=== PATIENT | female | born 1955 | race Caucasian/White ===

== ENCOUNTER 2016-11-15 07:26 | Observation (INO) | payer MEDICARE, OTHER ==
--- NOTE | ~2016-11-15 | OR ---
Unit #: [id number] #: [id number] Patient: DEBBIE LEUNG [id number] [address] [address] [id number] I MR#: [id number] NAME: DEBBIE LEUNG ROOM: [facility] Date of Procedure: 11/15/2016 Admission Date: 11/15/2016 Surgeon: Pascual Dove M.D. : 1955 Attending Physician: Pascual Dove M.D. Referring Physician: Pascual Dove M.D. Primary Care Physician: Dirk Dawson M.D. OPERATIVE REPORT JOB NOTE: CC: PAIN CENTER. PREOPERATIVE DIAGNOSES Intractable neck and back pain secondary to failed neck surgery and failed back surgery post spinal fusion. POSTOPERATIVE DIAGNOSES Intractable neck and back pain secondary to failed neck surgery and failed back surgery post spinal fusion. PROCEDURE PERFORMED Place long-term epidural catheter with intravenous sedation under fluoroscopic guidance for needle localization. DESCRIPTION OF PROCEDURE The patient was placed in a seated position. Standard monitors were applied. Sterile prep and drape of the lumbar area was performed. 2 mg of Versed were given in divided doses for anxiolysis and sedation, which were adequate. Vital signs remained stable. Sterile prep and drape then of the lumbar area was performed. The skin at the L3-L4 level was localized with 1% lidocaine. An 18-gauge Hustead needle was then advanced via loss of resistance technique with fluoroscopic guidance in toward the epidural space. The patient did not complain of pain or paresthesia. Epidural catheter was easily threaded approximately 7 cm into the epidural space. The patient had a mild paresthesia with catheter into the epidural space. This quickly abated. After confirming proper positioning with fluoroscopy and radiographic contrast, the catheter system was securely fastened using half-inch Steri-Strips and then sterile dressings. The patient tolerated the procedure well and was discharged to recovery room where an infusion will be set up to assess the patient for efficacy of actual narcotics. Dictated by... Jessie De La Torre/franny TD: 11/15/2016 12:50 JOB #: [id number] CC: Pain Center Unit #: [id number] #: [id number] Patient: DEBBIE LEUNG OPERATIVE REPORT X Pascual Dove MD X PROCEDURE OPERATIVE NOTE
--- NOTE | ~2016-11-15 | DS ---
Unit #: [id number] #: [id number] Patient: DEBBIE LENUG [id number] [address] [address] [id number] I MR#: [id number] NAME: DEBBIE LEUNG ROOM: [facility] Age: 60 Sex: F Admission Date: 11/15/2016 : 1955 Discharge Date: 11/16/2016 Attending Physician: Pascual Dove M.D. Referring Physician: Pascual Dove M.D. Primary Care Physician: Dirk Dawson M.D. DISCHARGE SUMMARY HISTORY The patient was placed in observation in the hospital following placement of an epidural catheter for a trial with a view towards possible intrathecal pain pump placement. The patient has intractable pain associated with failed back surgery syndrome, degenerative spine disease and a post cervical and lumbar fusion syndrome. After placing an epidural catheter in the operating suite, the patient was placed on the floor in continuous infusion. There were boluses of 1 mg initially and a 0.5 mg (1) further and rate was increased eventually to 0.4 mg per hour. At this level the patient had a 75% reduction in her symptom complex. She had no significant side effects. She did not require any breakthrough medications. She is very happy with the level of improvement that she achieved. The decision was made at that point that the patient had passed the trial. The catheter was discontinued and plan was to discharge the patient home. DISCHARGE DIAGNOSIS Intractable pain due to post cervical fusion syndrome, post lumbar fusion syndrome, radiculopathy, degenerative disc disease, neurogenic bladder. PLAN The plan is to schedule the patient as an outpatient for pump placement. Dictated by... Jessie De La Torre/ezequiel TD: 11/17/2016 07:46 JOB #: [id number] CC: Pain Center DISCHARGE SUMMARY X Pascual Dove MD X DISCHARGE SUMMARY
--- NOTE | ~2016-11-15 | EKG ---
PATIENT: DEBBIE LEUNG UNIT #: [id number] Ventricular Rate: 92 BPM Atrial Rate: 92 BPM P-R Interval: 172 ms QRS Duration: 84 ms Q-T Interval: 394 ms QTC Calculation(Bezet): 487 ms P [place]: 52 degrees Calculated R [place]: 7 degrees Calculated T [place]: 37 degrees Diagnosis Line: Normal sinus rhythm Diagnosis Line: Cannot rule out Inferior infarct , age Diagnosis Line: undetermined Diagnosis Line: Abnormal ECG Diagnosis Line: When compared with ECG of 20-FEB-2015 10:06, Diagnosis Line: Vent. rate has increased BY 31 BPM Diagnosis Line: QT has lengthened Diagnosis Line: Confirmed by MISAEL NICHOLSON MD ([id number]) on 11/16/2016 Diagnosis Line: 7:29:12 PM INTERPRETING MD: BHARAT WOO
[~2016-11-15 07:26] MED LIST: ACIDOPHILUS1 CA1 PO; ACIDOPHILUS1 TAB PO; ACIPHEX20 MG; ALLERGY SHOTS; ALLERGY SHOTS SUBQ; ALLERGY SYR1 DIS.SYR IM; ALPRAZOLAM; ALPRAZOLAM PO; AMBIEN10 MG PO; AMLODIPINE BESYL5 MG PO; B SHOT; BENTYL10 MG PO; BISOPROLOL/HCTZ1 TA3 PO; BUSPAR5 MG PO; CALCIUM + D 6001 TA1 PO; CALCIUM 500 + D1 TAB PO; CALTRATE 600+D PO; CARAFATE; CARAFATE PO; CARAFATE1 G PO; CARAFATE1 GM PO; CELEBREX PO; CELEXA PO; CHEWABLE ASPIRI81 MG PO; CIPRO PO; DICYCLOMINE HCL20 MG; DICYCLOMINE HCL20 MG PO; DURAGESIC25 MCG EXT; ESTRACE TOP; ESTRACE1 MG PO; ESTRADIOL1 MG PO; FISH OIL 1,2001 EACH PO; FLAGYL; FLAGYL PO; FLEXERIL10 MG PO; FLOMAX0.4 M1 PO; KEFLEX500 M2 PO; LASIX20 MG PO; LEVOCETIRIZINE D5 MG PO; LIPITOR; LIPITOR20 MG PO; LIPITOR40 MG PO; LODINE PO; LOMOTIL TABLET1 TAB; LORTAB 7.5-5001 TAB; LYRICA100 MG PO; MACRODANTIN50 MG PO; METOPROLOL SUCC25 MG PO; METRONIDAZOLE; MULTI VITAMIN1 EACH PO; NEXIUM PO; OXYCODON HCL-1 UDTAB PO; OXYCODONE HCL15 MG PO; PERCOCET10 PO; PERCOCET5/325 PO; PHENERGAN; PHENERGAN PO; PHENERGAN25 M1 PO; PRAVASTATIN SOD40 MG PO; PREDNISOLONE5 MG PO; PREDNISONE5 M1 PO; PREDNISONE5 MG PO; PRENATAL MULTIV1 TA1 PO; PRENATAL W/FOLI1 TA1 PO; PREVACID; PREVACID PO; PROTONIX; RECLAST 55 MG/100 M IV; RECLAST IV IV; REGLAN; REGLAN5 MG PO; SINGULAIR; SINGULAIR PO; VAGIFEM25 MCG PO; VITAMIN B 12; VITAMIN B12 INJ; VITAMIN D; VITAMIN D 4001 UDTAB PO; VITAMIN D400 UNI1 PO; XANAX0.5 M1 PO; XANAX1 MG PO; XYZAL5 MG PO; ZANAFLEX PO; ZOCOR PO; ZOFRAN PO; ZOLOFT100 MG PO; ZYRTEC PO; ZYRTEC10 M2 PO; [UNRECOGNIZED DRUG - OTHER]
[2016-11-15] MEDS ORDERED: BENTYL20 M1 PO (08:14)
[2016-11-15] MEDS ORDERED: XIFAXAN550 MG PO (08:15)
[2016-11-15 08:34] LABS: URINE SOURCE CATH
[2016-11-15 08:38] LABS: HEMATOCRIT 32.5 % (35.0-45.0); HEMOGLOBIN 10.6 gm/dL (12.0-16.0); MEAN CELL VOLUME 90.7 FL (83-96); MEAN CORPUSCULAR HEMOGLOBIN 29.5 PG (28-34); MEAN CORPUSCULAR HGB CONC 32.5 g/dL (30-36); MEAN PLATELET VOLUME 7.1 FL (6.5-11.5); RED BLOOD COUNT 3.58 X10e (3.90-5.30); WHITE BLOOD COUNT 7.9 X10e3 (4.0-10.5)
[2016-11-15 08:39] LABS: URINE APPEARANCE CLOUDY; URINE BILIRUBIN NEG (NEG); URINE BLOOD TRACE (NEG); URINE COLOR YELLOW; URINE GLUCOSE NEG (NEG); URINE KETONE TRACE (NEG); URINE LEUKOCYTE ESTERASE 3+ (NEG); URINE NITRATE POS (NEG); URINE PROTEIN TRACE (NEG); URINE SPECIFIC GRAVITY 1.019 (1.003-1.035); URINE UROBILINOGEN 0.2 MG/DL (NEG)
[2016-11-15 08:42] LABS: URINE SQUAMOUS EPITHELIAL CELL OCC /[HPF]; UWBCS1 AUWI INNUM (0-5)
[2016-11-15 08:57] LABS: CULTURE INDICATED? YES; URINE BACTERIA AUWI 3+ (NEGATIVE)
[2016-11-15 09:12] LABS: BLOOD UREA NITROGEN 8 mg/dL (9-23); CALCIUM SERUM 8.9 mg/dL (8.4-10.2); CARBON DIOXIDE 29 mmol/L (22-31); CHLORIDE 103 mmol/L (100-111); CREATININE SERUM 0.8 mg/dL (0.6-1.4); GLOM FILT RATE Estimated ABOVE60 mL/min (>60); GLUCOSE FASTING 103 mg/dL (70-110); SODIUM 141 mmol/L (135-145)
[2016-11-15 09:15] LABS: POTASSIUM 2.8 mmol/L (3.5-5.1)
== END 2016-11-16 18:20 | disposition home or self-care (01) ==
LOC: CSUR 07:26 → CPACUOF 09:27 → C4B 12:00
PROVIDERS: Pain Medicine Pain Medicine
DX: M96.1 Postlaminectomy syndrome, not elsewhere classified (principal); M54.16 Radiculopathy, lumbar region; M54.2 Cervicalgia; Z98.1 Arthrodesis status; K21.9 Gastro-esophageal reflux disease without esophagitis; Z87.440 Personal history of urinary (tract) infections; I10 Essential (primary) hypertension; M19.90 Unspecified osteoarthritis, unspecified site; Z88.1 Allergy status to other antibiotic agents; Z88.8 Allergy status to other drugs, medicaments and biological substances; Z90.710 Acquired absence of both cervix and uterus; Z96.653 Presence of artificial knee joint, bilateral
CPT/HCPCS: 76000; 80048; 81003; 85027; 87086; 87088; 87186; 93005; 96374; G0378; J2250; J2274; J2310; J2405

== ENCOUNTER → 2016-12-03 | Outpatient (CLI) | payer MEDICARE, OTHER ==
[~2016-12-03] MED LIST changes: +BENTYL20 M1 PO; +XIFAXAN550 MG PO
--- NOTE | ~2016-12-03 | BD1 ---
[facility] A Service of [facility] & [facility] RADIOLOGY TEXT RESULTS PATIENT: DEBBIE LEUNG LOCATION: SRA : 51 UNIT #: [id number] AGE: [address]: DIRK LA MD SEX: F ORDER DR: [id number] [address] [address] [id number] O MR#: [id number] Acc #: [id number] NAME: DEBBIE LEUNG : 1955 SEX: F STUDY DATE/TIME: 12/03/2016 11:19 [facility] ROOM: STUDY DESCRIPTION: Dexa Bone Dens 1+ Site Attending Physician: Dirk La M.D. Referring Physician: Dirk La M.D. Ordering Physician: Dirk La M.D. Primary Care Physician: Dirk La M.D. MEDICAL IMAGING REPORT This report is preliminary unless electronic signature is present. EXAM DEXA scan HISTORY A 60-year-old female postmenopausal screening for osteoporosis COMPARISON Bone densitometry 06/25/2013 and 04/22/2011 FINDINGS Bone density was assessed utilizing a [employer] bone densitometer. Bone density was measured at the distal right forearm. Hip and lumbar spine measurements could not be obtained as the patient has had previous hip replacements and lumbar spine instrumentation. A lateral vertebral assessment and scan was also obtained. Bone density within the distal radius utilizing the distal third of the radius measured 0.771 g/cm sq a T score -1.3. This represents a statistically significant change in bone density when compared to the 2013 study where the patient's distal radial measurements were 0.868 g/cm2. Based on the T score of -1.3, this corresponds to World Health Organization criteria for osteopenia and again represents a statistically significant change from the 2013 study. IMPRESSION 1. Bone density within the distal right forearm is greater than 1 standard deviation below the mean and is compatible World Health Organization criteria for osteopenia. When compared to the patient's study from June 2013, there has been a statistically significant decrease in bone density relative to the 2013 study. 2. Lateral vertebral assessment was also performed which demonstrated no definitive fractures. [facility] A Service of [facility] & [facility] RADIOLOGY TEXT RESULTS PATIENT: DEBBIE LEUNG LOCATION: [facility] : 51 UNIT #: [id number] AGE: [address]: DIRK LA MD SEX: F ORDER DR: Dictated by... Liam Grissom M.D. THIS IS AN ELECTRONICALLY VERIFIED REPORT Liam Grissom M.D. at 12/13/2016 7:35 PM RUSH/bri TD: 12/13/2016 18:18 JOB #: [id number] MEDICAL IMAGING REPORT Page 1 of 1
== END | disposition home or self-care (01) ==
LOC: SRAD 10:59
DX: M81.0 Age-related osteoporosis without current pathological fracture (principal)
CPT/HCPCS: 77080

== ENCOUNTER → 2016-12-27 | Day surgery (SDC) | payer MEDICARE, OTHER ==
--- NOTE | ~2016-12-27 | OR ---
Unit #: [id number] #: [id number] Patient: DEBBIE LEUNG [id number] [address] [place], [place] [address] [id number] O MR#: [id number] NAME: DEBBIE LEUNG ROOM: Date of Procedure: 12/27/2016 Admission Date: 12/27/2016 Surgeon: Pascual Dove M.D. : 1955 Attending Physician: Pascual Dove M.D. Primary Care Physician: Dirk Dawson M.D. OPERATIVE REPORT JOB NOTE: CC: PAIN CENTER PREOPERATIVE DIAGNOSES Intractable neck and back pain, failed back surgery syndrome. POSTOPERATIVE DIAGNOSES Intractable neck and back pain, failed back surgery syndrome. PROCEDURES PERFORMED Placement of intrathecal catheter and placement of programmable pain pump. ANESTHESIA General. PREOPERATIVE ANTIBIOTICS Ancef protocol. ESTIMATED BLOOD LOSS 20 mL. DESCRIPTION OF PROCEDURE The patient was placed under general anesthetic in a left lateral decubitus position. Pressure points were padded by the OR staff. The patient was then sterilely prepped and draped. Fluoroscopy was used to identify the L2-L3 level. The skin just lateral to midline here was localized with 0.5% Marcaine. Sharp and Bovie dissection were used to dissect down to the paraspinous fascia. A 17-gauge introducer needle was advanced with one pass into the intrathecal space. Clear CSF was seen to flow freely. Catheter was easily threaded with fluoroscopic guidance, so that the distal tip was at approximately T11. The catheter was then securely fastened using a butterfly anchor and 2-0 silk suture. Hemostasis was obtained and the wound was packed. The patient's right lower quadrant was then addressed. The skin was localized with 0.5% Marcaine. Sharp and then Bovie dissection were used to create a properly sized pump pocket. After this was done, a tunneling tool was passed back to the paraspinous wound and the catheter was threaded forward. The distal 36.5 cm were trimmed off leaving a total implanted length of 77.8 cm. After the pump had been properly prepped, this was attached to the pump. The pump was then placed into the pocket and secured with three 2-0 silk sutures. Care was taken to avoid any kinking of the catheter. The wound was copiously irrigated with irrigant. The subcutaneous tissues were closed in three layers with 2-0 Vicryl and the skin was closed with Unit #: [id number] #: [id number] Patient: DEBBIE LEUNG lou. The back wound was then also irrigated with irrigant, closed in 3 layers with 2-0 Vicryl and the skin was then closed with lou. Sterile dressings were applied. The pump will be started with preservative-free morphine 10 mg/mL, 0.25 mg bolus dose in addition to the catheter bolus and then the patient will be started on 1 mg per day. The Medtronic catheter was lot #[id number], Medtronic SynchroMed II 40 mL pump was serial #[id number]. Dictated by... Jessie De La Torre/franny TD: 12/27/2016 23:29 JOB #: [id number] OPERATIVE REPORT Page 1 of 1 X Pascual Dove MD X PROCEDURE OPERATIVE NOTE
[2016-12-27 08:33] LABS: CREATININE SERUM 0.7 mg/dL (0.6-1.4); GLOM FILT RATE Estimated 92.2 mL/min (>60)
== END | disposition home or self-care (01) ==
LOC: CSUR 06:35
PROVIDERS: Pain Medicine Pain Medicine
DX: M54.9 Dorsalgia, unspecified (principal); M54.2 Cervicalgia; M19.90 Unspecified osteoarthritis, unspecified site; K21.9 Gastro-esophageal reflux disease without esophagitis; I10 Essential (primary) hypertension; Z90.49 Acquired absence of other specified parts of digestive tract; Z87.442 Personal history of urinary calculi; Z87.440 Personal history of urinary (tract) infections; Z90.710 Acquired absence of both cervix and uterus; Z90.89 Acquired absence of other organs; Z98.1 Arthrodesis status; Z96.653 Presence of artificial knee joint, bilateral; Z87.19 Personal history of other diseases of the digestive system; Z88.5 Allergy status to narcotic agent; Z88.1 Allergy status to other antibiotic agents; Z79.899 Other long term (current) drug therapy
CPT/HCPCS: 76001; 80048; C1772; J0690; J1170; J1720; J2250; J2270; J2405; J3010

== ENCOUNTER 2017-03-07 12:20 | Emergency (ER) | payer MEDICARE, OTHER ==
--- NOTE | ~2017-03-07 | EKG ---
PATIENT: DEBBIE LEUNG UNIT #: [id number] Ventricular Rate: 88 BPM Atrial Rate: 88 BPM P-R Interval: 164 ms QRS Duration: 86 ms Q-T Interval: 386 ms QTC Calculation(Bezet): 467 ms P [place]: 55 degrees Calculated R [place]: -14 degrees Calculated T [place]: 18 degrees Diagnosis Line: Normal sinus rhythm Diagnosis Line: Low voltage QRS Diagnosis Line: Inferior infarct (cited on or before 15-NOV-2016) Diagnosis Line: Abnormal ECG Diagnosis Line: When compared with ECG of 15-NOV-2016 07:51, Diagnosis Line: No significant change was found Diagnosis Line: Confirmed by AVERY MARIE MD ([id number]) on 03/08/2017 Diagnosis Line: 3:30:56 PM INTERPRETING MD: CYNTHIA WOO
--- NOTE | ~2017-03-07 | CR72 ---
[facility] A Service of [facility] & [facility] RADIOLOGY TEXT RESULTS PATIENT: DEBBIE LEUNG LOCATION: [facility] : 51 UNIT #: [id number] AGE: [address]: Rosales Lockett MD SEX: F ORDER DR: [id number] [facility] [address] [facility] [place], [place] [address] [id number] E MR#: [id number] Acc #: [id number] NAME: DEBBIE LEUNG : 1955 SEX: F STUDY DATE/TIME: 03/07/2017 15:33 UNIT: [facility] ROOM: STUDY DESCRIPTION: CR Chest Single View Portable Attending Physician: Rsoales Lockett M.D. Ordering Physician: Rosales Lockett M.D. Primary Care Physician: Dirk Dawson M.D. MEDICAL IMAGING REPORT This report is preliminary unless electronic signature is present EXAM Portable chest, 1 view. DATE OF STUDY 03/07/2017 COMPARISON 03/01/2017 HISTORY Short of air and leg swelling for 2 days. FINDINGS There is no consolidation or effusion or pneumothorax. There appears be a small hiatal hernia and there is probably submaximal inspiration but otherwise no acute disease. Dictated by... Tomas Sargent M.D. THIS IS AN ELECTRONICALLY VERIFIED REPORT Tomas Sargent M.D. at 03/16/2017 10:40 AM JANETH/rosalva TD: 03/08/2017 09:59 JOB #: [id number] MEDICAL IMAGING REPORT Page 1 of 1 COPY
[2017-03-07 15:51] LABS: POC - CKMB 7.2 ng/mL (0.0-7.9); POC - TROPONIN <0.05 ng/mL (<=0.05)
[2017-03-07 15:52] LABS: BASOPHIL# 0.1 X10e3 (0-0.3); BASOPHIL% 0.6 % (0-2.5); EOSINOPHIL% 0.4 % (0.0-7.0); HEMATOCRIT 34.3 % (35.0-45.0); HEMOGLOBIN 10.6 gm/dL (12.0-16.0); LYMPHOCYTE# 1.4 X10e3 (1.0-3.5); LYMPHOCYTE% 11.4 % (17.0-45.0); MEAN CELL VOLUME 86.8 FL (83-96); MEAN CORPUSCULAR HEMOGLOBIN 26.7 PG (28-34); MEAN CORPUSCULAR HGB CONC 30.8 g/dL (30-36); MEAN PLATELET VOLUME 6.9 FL (6.5-11.5); MONOCYTE# 0.5 X10e3 (0-1.0); MONOCYTE% 4.5 % (3.0-12.0); NEUTROPHIL# 9.9 X10e3 (1.5-7.1); NEUTROPHIL% 83.1 % (40-75); PLATELET COUNT 393 X10e3 (140-420); RED BLOOD COUNT 3.95 X10e (3.90-5.30); RED CELL DISTRIBUTION WIDTH 14.6 % (11.0-15.5); WHITE BLOOD COUNT 11.9 X10e3 (4.0-10.5)
[2017-03-07 16:04] LABS: DIFF IND NO
[2017-03-07 16:09] LABS: ALBUMIN SERUM 4.1 g/dL (3.5-5.0); BILIRUBIN, DIRECT 0.1 mg/dL (0.0-0.2); BILIRUBIN,INDIRECT 0.8 mg/dL (0.0-0.9); BILIRUBIN,TOTAL 0.9 mg/dL (0.2-2.0); CALCIUM SERUM 8.9 mg/dL (8.4-10.2); GLOM FILT RATE Estimated 59.9 mL/min (>60); POTASSIUM 3.6 mmol/L (3.5-5.1); PROTEIN TOTAL SERUM 8.2 g/dL (6.0-8.3)
== END 2017-03-07 16:36 | disposition home or self-care (01) ==
LOC: CED 12:20
PROVIDERS: Emergency Medicine
DX: L03.116 Cellulitis of left lower limb (principal); L03.115 Cellulitis of right lower limb; R60.0 Localized edema; K21.9 Gastro-esophageal reflux disease without esophagitis; E78.5 Hyperlipidemia, unspecified; F41.9 Anxiety disorder, unspecified; F32.9 Major depressive disorder, single episode, unspecified; Z90.710 Acquired absence of both cervix and uterus; Z88.5 Allergy status to narcotic agent; Z88.8 Allergy status to other drugs, medicaments and biological substances
CPT/HCPCS: 36415; 71010; 80048; 80076; 82553; 83880; 84484; 85025; 93005; 99284

== ENCOUNTER → 2017-05-12 | Outpatient (CLI) | payer MEDICARE, OTHER ==
--- NOTE | ~2017-05-12 | NM4 ---
[facility] A Service of [facility] RADIOLOGY TEXT RESULTS PATIENT: DEBBIE LEUNG LOCATION: [facility] : 51 UNIT #: [id number] AGE: [address]: Atilio Weaver MD SEX: F ORDER DR: [id number] [facility] [address] [facility] [place] [facility]. [place], [place] [address] [id number] O MR#: [id number] Acc #: [id number] NAME: DEBBIE LEUNG : 1955 SEX: F STUDY DATE/TIME: 05/12/2017 9:32 UNIT: [facility] ROOM: STUDY DESCRIPTION: RI Bone or Joint 3 Phase Study Attending Physician: Atilio Weaver M.D. Referring Physician: Atilio Weaver M.D. Ordering Physician: Atilio Weaver M.D. Primary Care Physician: Dirk Dawson M.D. MEDICAL IMAGING REPORT This report is preliminary unless electronic signature is present EXAM Three-phase bone scan. HISTORY 61-year-old female with left anterior pelvic and groin pain for least a year. Left hip replacement in 2013, right hip replacement 2015. COMPARISON MRI pelvis 08/20/2016. FINDINGS Three-phase bone scan was performed centered over the hips and pelvis following the intravenous administration of 27.7 mCi technetium 99m MDP. Examination demonstrates a normal symmetric flow to the hips and pelvis. Immediate blood-pool imaging demonstrates relatively symmetric uptake within the soft tissues about the hip. Delayed-phase imaging demonstrates photopenic areas in both hips related to bilateral total hip arthroplasties. There is mild increased uptake in the acetabular region of the left hip corresponding to the weightbearing aspect of the left hip acetabulum. This is nonspecific but could be related to altered biomechanical stress. No abnormal uptake identified about the femoral components of either hip arthroplasties. There is increased uptake within both hemisacrums which raises a concern for possible sacral insufficiency fractures. This would be supported by the presence of an apparent sacral insufficiency fracture on the patient's study in August 2016. There is also increased uptake in the left pubic symphysis which corresponds to a site of fracturing noted on the previous MRI. IMPRESSION 1. Multiple foci of increased uptake on the delayed-phase images within the pelvis most prominent within both sacral ala and also within the left symphysial body. In this patient with a previous history of fractures, this could represent the remnants of previous fractures or STS. [facility] A Service of [facility] RADIOLOGY TEXT RESULTS PATIENT: DEBBIE LEUNG LOCATION: [facility] : 51 UNIT #: [id number] AGE: [address]: Atilio Weaver MD SEX: F ORDER DR: represent an acute process. This would suggest bilateral sacral insufficiency fractures and a possible left pubic ramus fracture. Again, this could be related to previous injury. 2. Mild increased uptake within the left hip acetabulum about the acetabular component of the patient's left hip arthroplasty. This is nonspecific, could be related altered biomechanical stress. Loosening would be considered less likely due to its more focal uptake. No abnormal uptake noted about the femoral components to suggest loosening of the femoral components. Dictated by... Liam Grissom M.D. THIS IS AN ELECTRONICALLY VERIFIED REPORT Liam Grissom M.D. at 05/13/2017 8:00 AM RUSH/rosalva TD: 05/13/2017 00:13 JOB #: [id number] MEDICAL IMAGING REPORT Page 1 of 1 COPY
== END | disposition home or self-care (01) ==
LOC: CNUC 08:54
DX: T84.84XA Pain due to internal orthopedic prosthetic devices, implants and grafts, initial encounter (principal); R94.8 Abnormal results of function studies of other organs and systems
CPT/HCPCS: 78315; A9503